=== PATIENT | female | born 1960 | race Caucasian/White ===

== ENCOUNTER 2019-03-23 01:08 | Observation (INO) | payer BC ==
[~2019-03-23] VITALS: Ht 160 cm; Wt 79.4 kg
[~2019-03-23 01:08] MED LIST: HYDROCHLOROTHIA25 MG PO; LISINOPRIL10 MG PO
[2019-03-23] MEDS ORDERED: MORPHINE SULFATE INJ 4 MG/ML INJ 1ML IV STA (01:23)
[2019-03-23] MEDS ORDERED: SODIUM CHLORIDE 0.9% 500ML 500 ML IV STA (01:25)
[2019-03-23] MEDS ORDERED: FAMOTIDINE 20 MG/2 ML VIAL IV ONE (01:30)
[2019-03-23] MEDS ORDERED: HYDRALAZINE HCL 20 MG/ML VIAL IV ONE (01:30)
[2019-03-23] MEDS ORDERED: NITROGLYCERIN 2% OINT 1 GM PKT TOP ONE (01:30)
[2019-03-23] MEDS ORDERED: PROMETHAZINE 25MG/ NS 50ML (IV) IV ONE (01:45)
[2019-03-23 01:47] LABS: BILIRUBIN,URINE NEGATIVE (NEGATIVE); CLARITY,URINE SL CLOUDY (CLEAR); COLOR,URINE YELLOW (YELLOW); KETONES,URINE NEGATIVE (NEGATIVE); LEUKOCYTE ESTERASE ,URINE SMALL (NEGATIVE); NITRITE,URINE NEGATIVE (NEGATIVE); PROTEIN,URINE DIPSTICK NEGATIVE (NEGATIVE); URINE UROBILINOGEN 0.2 mg/dL (0.2 - 1)
[2019-03-23 01:48] LABS: BASOPHILS % 0.3 % (0.0-1.0); EOSINOPHILS # (AUTO) 0.2 (0.0-0.4); EOSINOPHILS % 1.8 % (0.0-6.0); HEMATOCRIT 41.6 % (34.2-44.1); HEMOGLOBIN 14.2 g/dL (12.0-16.0); LYMPHOCYTES # (AUTO) 3.3 (1.0-3.2); LYMPHOCYTES % 26.9 % (18.0-39.1); MEAN CORPUSCULAR HEMOGLOBIN 30.1 pg (28-32); MEAN CORPUSCULAR HGB CONC 34.1 g/dL (31-35); MEAN CORPUSCULAR VOLUME 88.3 fL (81-99); MONOCYTES # (AUTO) 1.5 (0.2-0.8); MONOCYTES % 12.2 % (4.4-11.3); NEUTROPHILS % 58.2 % (38.7-80.0); PLATELET COUNT 372 x10e3/uL (140-360); RED BLOOD COUNT 4.71 x10e6/uL (3.6-5.1); RED CELL DISTRIBUTION WIDTH 12.1 % (11.7-14.4)
[2019-03-23 02:01] LABS: ALANINE AMINOTRANSFERASE 27 IU/L (0-55); ALBUMIN 4.1 g/dL (3.5-5.0); ALKALINE PHOSPHATASE 89 IU/L (40-150); AMYLASE 81 U/L (25-125); ANION GAP 13.8 mmol/L (8-16); BACTERIA,URINE MODERATE /HPF; BLOOD UREA NITROGEN 10 mg/dL (7-26); BUN/CREATININE RATIO 14 (6-25); CALCIUM 10.6 mg/dL (8.4-10.2); CARBON DIOXIDE 28 mmol/L (22-29); CHLORIDE 101 mmol/L (98-107); CREATINE KINASE 38 IU/L (29-168); CREATININE, SERUM 0.73 mg/dL (0.57-1.11); EPITHELIAL CELLS,URINE FEW /LPF; EST GLOMERULAR FILTRATION RATE > 60 ML/MIN (60-); GLUCOSE 111 mg/dL (74-118); LIPASE 102 U/L (8-78); POTASSIUM 3.8 mmol/L (3.5-5.1); RENAL EPITHELIAL CELLS,URINE FEW; SODIUM 139 mmol/L (136-145); WBC,URINE (MAN) 21-50 /HPF (0-5)
[2019-03-23] MEDS ORDERED: CEFTRIAXONE SOD 1 GM VIAL IV ONE (02:30)
--- NOTE | 2019-03-23 02:34 | Diagnostic Imaging Report ---
EXAMINATION: CHEST 2 VIEWS INDICATION: chest pain, abdominal pain COMPARISON: None FINDINGS: PA and lateral views TUBES and LINES: None. LUNGS: Lungs are well inflated. Lungs are clear. There is no evidence of pneumonia or pulmonary edema. PLEURA: No pleural effusion or pneumothorax. HEART AND MEDIASTINUM: The cardiomediastinal silhouette is unremarkable. BONES AND SOFT TISSUES: No acute osseous lesion. Soft tissues are unremarkable. Degenerative changes in the spine. UPPER ABDOMEN: No free air under the diaphragm. Surgical clips in the right upper quadrant. IMPRESSION: No acute thoracic radiographic abnormality. Signed by: Carlito Bynum DO on 03/23/2019 2:31 AM
--- NOTE | 2019-03-23 02:39 | Diagnostic Imaging Report ---
EXAM: CT Abdomen and Pelvis WITHOUT contrast INDICATION: Flank pain COMPARISON: None. TECHNIQUE: Abdomen and pelvis were scanned utilizing a multidetector helical scanner from the lung base to the pubic symphysis without administration of IV contrast. Absence of intravenous contrast decreases sensitivity for detection of focal lesions and vascular pathology. Coronal and sagittal reformations were obtained. Routine protocol was performed. IV CONTRAST: None ORAL CONTRAST: None COMPLICATIONS: None RADIATION DOSE: Total DLP: 469 mGy*cm Estimated effective dose: (DLP x 0.015 x size factor) mSv CTDIvol has been reviewed. It is below the limits set by the Radiation Protocol Committee (RPC). Dose modulation, iterative reconstruction, and/or weight based adjustment of the mA/kV was utilized to reduce the radiation dose to as low as reasonably achievable. FINDINGS: LINES and TUBES: None. LOWER THORAX: Unremarkable HEPATOBILIARY: No focal hepatic lesions. No biliary ductal dilation. GALLBLADDER: There are cholecystectomy clips. SPLEEN: No splenomegaly. PANCREAS: No focal masses or ductal dilatation. ADRENALS: No adrenal nodules KIDNEYS/URETERS: No hydronephrosis. No cystic or solid mass lesions. No stones. GI TRACT: No abnormal distention, wall thickening, or evidence of bowel obstruction. There are diverticula within the colon without evidence of diverticulitis. Appendix is normal. PELVIC ORGANS/BLADDER: Unremarkable. LYMPH NODES: No lymphadenopathy. VESSELS: Unremarkable. PERITONEUM / RETROPERITONEUM: No free air or fluid. BONES: There are degenerative changes in the lumbar spine. SOFT TISSUES: There is a fat containing para-umbilical hernia. IMPRESSION: No acute abnormalities in the abdomen or pelvis on this noncontrast abdominal CT. Signed by: Carlito Bynum DO on 03/23/2019 2:35 AM
[2019-03-23] MEDS ORDERED: ENOXAPARIN INJ 80 MG/0.8 ML SYR SC ONE (03:00)
[2019-03-23] MEDS ORDERED: ONDANSETRON HCL INJ 2MG/ML 2ML 2 MG/ML VIAL IV PRN (03:00)
[2019-03-23] MEDS ORDERED: SODIUM CHLORIDE FLUSH 10 ML SYR INJ PRN (03:00)
[2019-03-23] MEDS ORDERED: MORPHINE SULFATE 2 MG/ML SYR 1ML IV PRN (03:00)
--- OUTSIDE RECORDS SUMMARY | 2019-03-23 03:32 | XMS REPORT ---
Author [facility] Address Unknown Phone Unavailable Care Team Providers Care Technology Manager Name Role Phone Gilma ROBERSON Unavailable Unavailable Problems This patient has no known problems. Allergies, Adverse Reactions, Alerts This patient has no known allergies or adverse reactions. Medications This patient has no known medications. Results Test Description Test Time Test Comments Text Results Atomic Results Result Comments CT ABDOMEN/PELVIS WO 2019-03-23 02:31:00 [place] [address] Patient Name: SADIE DILL MR #: [id number] : 1960 Age/Sex: 59/F Req #: [id number] Adm Physician: Ordered by: MAYR ROBERSON MD Report #: [id number] Location: ER Room/Bed: Procedure: [id number] CT/CT ABDOMEN/PELVIS WO Exam Date: 03/23/19 Exam Time: 0130 REPORT STATUS: Signed EXAM: CT Abdomen and Pelvis WITHOUT contrast INDIC ATION: Flank pain COMPARISON: None. TECHNIQUE: Abdomen and pelvis were scanned utilizing a multidetector helical scanner from the lung base to the pubic symphysis without administration of IV contrast. Absence of intravenous contrast decreases sensitivity for detection of focal lesions and vascular pathology. Coronal and sagittal reformations were obtained. Routine protocol was performed. IV CONTRAST: None ORAL CONTRAST: None COMPLICATIONS: None RADIATION DOSE: Total DLP: 469 mGy*cm Estimated effective dose: (DLP x 0.015 x size factor) mSv CTDIvol has been reviewed. It is below the limits set by the Radiation Protocol Committee (RPC). Dose modulation, iterative reconstruction, and/or weight based adjustment of the mA/kV was utilized to reduce the radiation dose to as low as reasonably achievable. FINDINGS: LINES and TUBES: None. LOWER THORAX: Unremarkable HEPATOBILIARY: No focal hepatic lesions. No biliary ductal dilation. GALLBLADDER: There are cholecystectomy clips. SPLEEN: No splenomegaly. PANCREAS: No focal masses or ductal dilatation. ADRENALS: No adrenal nodules KIDNEYS/URETERS: No hydronephrosis. No cystic or solid mass lesions. No stones. GI TRACT: No abnormal distention, wall thickening, or evidence of bowel obstruction. There are diverticula within the colon without evidence of diverticulitis. Appendix is normal. PELVIC ORGANS/BLADDER: Unremarkable. LYMPH NODES: No lymphadenopathy. VESSELS: Unremarkable. PERITONEUM / RETROPERITONEUM: No free air or fluid. BONES: There are degenerative changes in the lumbar spine. SOFT TISSUES: There is a fat containing para-umbilical hernia. IMPRESSION: No acute abnormalities in the abdomen or pelvis on this noncontrast abdominal CT. Signed by: Carlito Bynum DO on 03/23/2019 2:35 AM Dictated By: CARLITO BYNUM DO 4 Transcribed By: MILAGROS on 03/23/19234 COPY TO: MARY ROBERSON MD CHEST 2 VIEWS 2019-03-23 02:30:00 [place] [address] Patient Name: SADIE DILL MR #: [id number] : 1960 Age/Sex: 59/F Req #: [id number] Adm Physician: Ordered by: MARY ROBERSON MD Report #: [id number] Location: ER Room/Bed: Procedure: [id number] DX/CHEST 2 VIEWS Exam Date: 03/23/19 Exam Time: 129 REPORT STATUS: Signed EXAMINATION: CHEST 2 VIEWS INDICATION: chest pain, abdominal pain COMPARISON: None FINDINGS: PA and lateral views TUBES and LINES: None. LUNGS: Lungs are well inflated. Lungs are clear. There is no evidence of pneumonia or pulmonary edema. PLEURA: No pleural effusion or pneumothorax. HEART AND MEDIASTINUM: The cardiomediastinal silhouette is unremarkable. BONES AND SOFT TISSUES: No acute osseous lesion. Soft tissues are unremarkable. Degenerative changes in the spine. UPPER ABDOMEN: No free air under the diaphragm. Surgical clips in the right upper quadrant. IMPRESSION: No acute thoracic radiographic abnormality. Signed by: Carlito Bynum DO on 03/23/2019 2:31 AM Dictated By: CARLITO BYNUM DO 0 Transcribed By: MILAGROS on 03/23/19230 COPY TO: MARY ROBERSON MD
[2019-03-23] MEDS ORDERED: NITROGLYCERIN 2% OINT 1 GM PKT TOP SCH (06:00)
[2019-03-23] MEDS ORDERED: METOPROLOL TARTRATE INJ 1 MG/ML VIAL IV PRN (06:15)
[2019-03-23] MEDS ORDERED: ACETAMINOPHEN 325 MG TAB PO PRN (06:15)
[2019-03-23] MEDS ORDERED: SODIUM CHLORIDE 0.9% 1000ML 1,000 ML IV SCH (06:30)
[2019-03-23] MEDS ORDERED: ALBUTEROL/IPRATROPIUM 3 ML NEB NEB PRN (07:00)
[2019-03-23] MEDS ORDERED: FAMOTIDINE 20 MG TAB PO SCH ×2 (07:30→09:00)
--- NOTE | 2019-03-23 07:40 | NUR ---
report given to matthieu mcclendon
--- NOTE | 2019-03-23 08:00 | NUR ---
VERBAL REPORT GIVEN TO VANESA KRAFT RN.
--- NOTE | 2019-03-23 08:43 | NUR ---
pt spoke with hanh case and stated she needed her iv removed because she is leaving; hanh spoke with debbie rn and asked what was going on and nurse went into pt room to find out; pt states she has things to do and she can't be here any longer and she didn't realize she'd be here this long and says she needs her iv removed so she can leave; nurse informs pt of risk/benefits of staying/leaving and pt acknowledges she understands; hakan sommers spoke with pt prior to pt signing ama and again explains risks/benefits of staying/leaving and pt again acknowledges she understands and that she needs to leave; iv removed and pt signs ama; betty العراقي (international accountant) notified of pt signing ama
[2019-03-23] MEDS ORDERED: LORATADINE 10 MG TAB PO SCH (09:00)
[2019-03-23] MEDS ORDERED: ASPIRIN 325 MG TAB EC PO SCH (09:00)
[2019-03-23] MEDS ORDERED: LISINOPRIL 10 MG TAB PO SCH (09:00)
[2019-03-23] MEDS ORDERED: SERTRALINE HCL 100 MG TAB PO SCH (09:00)
[2019-03-23] MEDS ORDERED: HYDROCHLOROTHIAZIDE 25 MG TAB PO SCH (09:00)
[2019-03-23] MEDS ORDERED: ZOLPIDEM TARTRATE 5 MG TAB PO PRN (21:00)
[2019-03-24] MEDS ORDERED: CEFTRIAXONE SOD 1 GM/NS 50 ML 50 ML IV SCH (06:15)
== END 2019-03-23 23:50 | disposition left against medical advice (07) ==
LOC: ER 01:08 → ERHOLD 03:18
PROVIDERS: ADMIT Internal Medicine; ATTEND Internal Medicine
DX: I25.110 Atherosclerotic heart disease of native coronary artery with unstable angina pectoris (principal); I10 Essential (primary) hypertension; N39.0 Urinary tract infection, site not specified; R10.13 Epigastric pain; R11.0 Nausea; F32.9 Major depressive disorder, single episode, unspecified; G47.00 Insomnia, unspecified
CPT/HCPCS: 36415; 71046; 74176; 80053; 81001; 82150; 82550; 82553; 83690; 84484; 85025; 85379; 87086; 93005; 99284; G0378; J0696; J1650; J2270; J2550; J7030; J7040

== ENCOUNTER 2022-07-10 17:09 | Emergency (ER) | payer BC ==
[~2022-07-10] VITALS: Ht 160 cm; Wt 79.4 kg
[2022-07-10 18:51] LABS: CLARITY,URINE SL CLOUDY (CLEAR); COLOR,URINE YELLOW (YELLOW); KETONES,URINE TRACE (NEGATIVE); LEUKOCYTE ESTERASE ,URINE MODERATE (NEGATIVE); NITRITE,URINE NEGATIVE (NEGATIVE); PROTEIN,URINE DIPSTICK NEGATIVE (NEGATIVE)
[2022-07-10 18:52] LABS: URINE UROBILINOGEN 0.2 mg/dL (0.2 - 1)
[2022-07-10 18:58] LABS: BACTERIA,URINE MODERATE /HPF; EPITHELIAL CELLS,URINE MANY /LPF; WBC,URINE (MAN) >50 /HPF (0-5)
[2022-07-10 19:00] LABS: TRANSITIONAL EPI CELLS,URINE FEW
[2022-07-10] MEDS ORDERED: ONDANSETRON ODT4 MG PO (19:18)
[2022-07-10] MEDS ORDERED: CEFDINIR300 MG PO (19:18)
[2022-07-10] MEDS ORDERED: CEFDINIR 300 MG CAP PO SCH (19:45)
[2022-07-10] MEDS ORDERED: CEFDINIR 300 MG CAP ONE (19:48)
== END 2022-07-10 19:35 | disposition home or self-care (01) ==
LOC: ER 17:26
DX: R50.9 Fever, unspecified (principal); N30.90 Cystitis, unspecified without hematuria; R10.30 Lower abdominal pain, unspecified; I10 Essential (primary) hypertension; F32.A Depression, unspecified; G47.00 Insomnia, unspecified
CPT/HCPCS: 81001; 99283